=== PATIENT | male | born 2000 | race Hispanic/Latino ===

== ENCOUNTER 2019-12-31 04:13 | Emergency (ER) | payer SELFPAY ==
[2019-12-31] MEDS ORDERED: LIDOCAINE 1% W/ EPINEPHRINE 20 ML VIAL INJ ONE (04:26)
[2019-12-31 04:32] VITALS: TEMP 98.4; O2SAT 97
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
[2019-12-31] MEDS ORDERED: NEOMYCIN-BACITRACIN-POLYMYXIN 0.9 GM UD TOP ONE (05:14)
[2019-12-31 05:23] VITALS: BP 142/76
== END 2019-12-31 05:25 | disposition home or self-care (01) ==
LOC: ER 04:13
DX: S01.111A Laceration without foreign body of right eyelid and periocular area, initial encounter (principal); S09.90XA Unspecified injury of head, initial encounter; V86.65XA Passenger of 3- or 4- wheeled all-terrain vehicle (ATV) injured in nontraffic accident, initial encounter; Y92.9 Unspecified place or not applicable